=== PATIENT | male | born 1975 | race Two or more races ===

== ENCOUNTER 2020-01-14 19:25 | Emergency (ER) | payer SELFPAY ==
[2020-01-14 19:47] LABS: #Lymphocytes 1.9 thou/uL (1.20-3.40); #Monocytes 0.6 thou/uL (0.11-0.59); #Neutrophils 8.5 thou/uL (1.40-6.50); %Basophils 0.4 % (0.0-1.0); %Eosinophils 0.4 % (0.0-10.0); %Lymphocytes 16.9 % (21.0-51.0); %Monocytes 5.5 % (0.0-10.0); %Neutrophils 76.9 % (42.0-75.0); Mean Corpuscular HGB CONC 32.1 g/dL (32.0-36.0); Mean Corpuscular Hemoglobin 29.9 pg (27.0-31.0); Mean Corpuscular Volume 93.1 fL (78.0-98.0); Mean Platelet Volume 7.9 fL (7.4-10.4); Platelet Count 258 thou/uL (130-400); RBC Distribution Width 11.9 % (11.5-14.5); Red Blood Cell (RBC) Count 5.67 mill/uL (4.70-6.10)
[2020-01-14] MEDS ORDERED: Ondansetron PF 4 MG/2 ML Vial ONE (19:49)
[2020-01-14] MEDS ORDERED: Morphine 4 MG/ML VIAL ONE (19:49)
[2020-01-14] MEDS ORDERED: Sodium Chloride 0.9% 1,000 ML ONE (19:49)
[2020-01-14 19:54] LABS: Bilirubin Small (Negative); Blood, Urine Large (Negative); Clarity Slightly Cloudy (Clear); Glucose, Urine (Dipstick) Negative (Negative); Leukocyte Trace (Negative); Nitrite Negative (Negative); Protein, Urine (Dipstick) 30 mg/dL (Neg-Trace); RBC/HPF 21-50 HPF (0-3)
[2020-01-14 19:55] LABS: Bacteria/HPF 1+ HPF (None Seen)
[2020-01-14 20:06] LABS: ALT (SGPT) 56 U/L (8-55); AST (SGOT) 26 U/L (5-34); Albumin 4.4 g/dL (3.5-5.0); Alkaline Phosphatase 61 U/L (40-110); Anion Gap 13 mmol/L (10-20); BUN (Urea Nitrogen) 11 mg/dL (8.9-20.6); Bilirubin, Total 0.8 mg/dL (0.2-1.2); Calc. Creatinine Clearance 0 mL/min (70-130); Calcium 9.2 mg/dL (7.8-10.44); Carbon Dioxide 27 mmol/L (22-29); Chloride 103 mmol/L (98-107); Estimated GFR-MDRD 57; Globulin 3.7 g/dL (2.4-3.5); Glucose 141 mg/dL (70-105); Lipase 159 U/L (8-78); Protein, Total 8.1 g/dL (6.0-8.3); Sodium 139 mmol/L (136-145)
[2020-01-14] MEDS ORDERED: Ketorolac Tromethamine 30 MG/ML VIAL ONE (20:14)
[2020-01-14] MEDS ORDERED: Metoclopramide HCl 10 MG/2 ML VIAL ONE (20:29)
[2020-01-14] MEDS ORDERED: diphenhydrAMINE 50 MG/ML VIAL ONE (20:29)
--- NOTE | 2020-01-14 21:14 | CT ---
CT ABDOMEN AND PELVIS WITHOUT IV CONTRAST: Date: 01-14-2020 Provided Clinical History: Right flank pain. FINDINGS: The visualized lung appears are free of significant air opacities. There is a 7 mm right proximal ureteral calculus with associated mild hydronephrosis and hydroureter. The solid abdominal organs are suboptimally evaluated in the absence of IV contrast material but dem onstrate an otherwise unremarkable unenhanced CT appearance. There is no bowel dilatation, inflammatory fat stranding, free fluid, or free air apparent. Changes o f prior appendectomy are noted. The osseous structures demonstrate no concerning lytic or blastic lesions. IMPRESSION: 7 mm obstructing proximal right ureteral calculus. POS: [facility]
[2020-01-14] MEDS ORDERED: Cephalexin 250 MG CAP ONE (21:54)
== END 2020-01-14 22:33 | disposition home or self-care (01) ==
LOC: NAV ERS 19:25
DX: N13.2 Hydronephrosis with renal and ureteral calculous obstruction (principal); Z79.899 Other long term (current) drug therapy
CPT/HCPCS: 36415; 74176; 80053; 81003; 81015; 83690; 85025; 87086; 94760; 96361; 96374; 96375; J1200; J1885; J2270; J2405; J2765; J7050